=== PATIENT | male | born 1960 | race Two or more races ===

== ENCOUNTER → 2016-07-28 | Outpatient (CLI) | payer OTHER ==
--- NOTE | 2016-07-28 15:14 | XR ---
EXAMINATION TYPE: XR chest 2V DATE OF EXAM: 07/28/2016 2:21 PM COMPARISON: NONE HISTORY: Bacterial pneumonia, cough TECHNIQUE: Frontal and lateral views of the chest are obtained. FINDINGS: There is no focal air space opacity, pleural effusion, or pneumothorax seen. The cardiac silhouette size is within normal limits. There is a mild spinal curvature. The osseous structures ar e intact. IMPRESSION: No acute cardiopulmonary process.
== END | disposition home or self-care (01) ==
LOC: RADXRMAIN 14:08
PROVIDERS: ATTEND Family Medicine
DX: J18.9 Pneumonia, unspecified organism (principal)
CPT/HCPCS: 71020

== ENCOUNTER 2020-10-04 09:05 | Day surgery (SDC) | payer OTHER ==
[2020-10-01 11:49] VITALS: BMI 26.6
[~2020-10-04 09:05] MED LIST: LACTATED RINGERS 1,000 ML IV SCH
[2020-10-04 10:14] VITALS: TEMP 97.8
[2020-10-04] MEDS ORDERED: LACTATED RINGERS 1,000 ML IV ONE (10:14)
[2020-10-04] MEDS ORDERED: LIDOCAINE 1% (10MG/ML) FOR IV START INTRADERMA ONE (10:23)
[2020-10-04] MEDS ORDERED: PROPOFOL 10 MG/ML 20 ML VIAL IV ONE (11:25)
--- NOTE | 2020-10-04 11:30 | P.GSHP ---
History of Present Illness H&P Date: 10/04/20 Chief Complaint: History of colon polyps Is a 60-year-old male been safe for colonoscopy. Patient has a history of colon polyps. Last colonoscopy was 10 years ago Past Medical History Past Medical History: No Reported History History of Any Multi-Drug Resistant Organisms: None Reported Past Surgical History: Hernia Repair Additional Past Surgical History / Comment(s): nasal surgery as child, cyst in throat Past Anesthesia/Blood Transfusion Reactions: No Reported Reaction Smoking Status: Never smoker Medications and Allergies Home Medications Medication Instructions Recorded Confirmed Type No Known Home Medications 10/01/20 10/01/20 History Allergies Allergy/AdvReac Type Severity Reaction Status Date / Time No Known Allergies Allergy Verified 10/01/20 11:45 Surgical - Exam Vital Signs Temp Pulse Resp BP Pulse Ox 97.8 F 62 18 163/84 99 10/04/20 10:13 10/04/20 10:13 10/04/20 10:13 10/04/20 10:13 10/04/20 10:13 - General well developed, well nourished, no distress - Eyes PERRL - ENT normal pinna - Neck no masses - Respiratory normal expansion - Cardiovascular Rhythm: regular - Abdomen Abdomen: soft, non tender Assessment and Plan Assessment: History of colon polyps. We'll perform colonoscopy.
--- NOTE | 2020-10-04 11:41 | P.OP ---
Date of Procedure: 10/04/20 Preoperative Diagnosis: History of colon polyps Postoperative Diagnosis: Hemorrhoids Procedure(s) Performed: Colonoscopy Anesthesia: MAC Surgeon: Earle Valdez Pathology: none sent Condition: stable Disposition: PACU Description of Procedure: The patient's placed on the endoscopy table in the lateral position. Seen IV sedation. Digital rectal exam was performed which revealed external hemorrhoids. Flexible colonoscope was then placed patient anus passed throughout the entire colon. The ileocecal valve was visualized. Cecum, ascending and transverse colon appeared normal. The descending and sigmoid colon appeared normal. Scope was brought back the rectum was normal. Scope from patient.
[2020-10-04 12:08] VITALS: BP 168/92; PULSE 60; RESP 16
== END 2020-10-04 13:14 | disposition home or self-care (01) ==
LOC: ORWHC2ENDO 09:05
PROVIDERS: ATTEND Surgery
DX: Z12.11 Encounter for screening for malignant neoplasm of colon (principal); Z86.010 Personal history of colon polyps; K64.8 Other hemorrhoids
CPT/HCPCS: J2704; G0105; 45378

== ENCOUNTER → 2021-03-05 | Outpatient (CLI) | payer OTHER ==
--- NOTE | 2021-03-05 19:33 | CONS ---
CONSULTATION This is a 60-year-old male patient presenting with concerns about sleep apnea. REASON FOR CONSULTATION: Sleep apnea. The patient is a 60-year-old male who is coming in today accompanied by his . The patient's has noted that the patient is snoring loudly and he stops breathing at night. It has been getting worse over the past 6 months. The patient occasionally wakes up gasping for air. He goes to bed around 11 p.m., wakes up at 4 a.m. in the morning. He tosses and turns in his bed till around 5 or 5:30, and he gets out of bed following that. He does not feel any tiredness or sleepiness or somnolence or drowsiness during the day. No recent weight gain or weight loss. In fact, the patient has lost weight. He has changed his life style and he is undergoing walking and running and sports in general, and he has lost a considerable amount of weight, on the order of 25-30 pounds over the past several years. Newhall score is currently at 2. He is able to drive his car without falling asleep. No nocturnal angina, shortness of breath or heartburn. No sleepwalking or sleeptalking. He does not wake up with a dry mouth. On examination he has significant overbite. PAST MEDICAL HISTORY: Negative. SURGICAL HISTORY: Surgical history includes vasectomy, hernia repair and colonoscopies. DRUG ALLERGIES: MOTRIN. MEDICATIONS: None. SOCIAL HISTORY: Nonsmoker. Drinks 3 beers around 2 hours prior to going to bed while watching television. REVIEW OF SYSTEMS: Fourteen-point review of systems was done, and the positive findings are all mentioned above in the history of present illness. FAMILY HISTORY: Negative for sleep apnea. Positive for heart disease and hyperlipidemia in his parents. PHYSICAL EXAMINATION: BP is 140/88, pulse 63, respirations 12, temperature 97.5, saturation 99% on room air. Body mass index is 27.6. Newhall score is 2. Neck size 16-1/2 inches. Weight is 187. GENERAL APPEARANCE: Calm, comfortable. HEAD: Atraumatic, normocephalic. NECK: Supple. No JVD. No goiter or neck masses. Mallampati class 4. LUNGS: Diminished. Otherwise clear. HEART: Heart sounds are regular rate and rhythm. Normal S1, S2. No S3, S4. No murmurs. ABDOMEN: Soft, nontender. No organomegaly. EXTREMITIES: No edema. No cyanosis or clubbing. IMPRESSION: 1. Primary snoring versus obstructive sleep apnea. This needs to be further investigated. Symptoms are essentially related to snoring and occasional apneas. Nevertheless, no major hypersomnia or sleepiness or impairment in day-to-day functioning or quality of life. Newhall score is only 2. 2. Significant overbite. PLAN: 1. Will do a home sleep study to evaluate the patient for sleep breathing disorder. 2. Will consider oral appliance if his sleep apnea turns out to be mild. Snore guard will be helpful if the patient has primary snoring. Any form of significant or moderate to severe sleep apnea may need CPAP therapy. Final decision will be done based on results of the home sleep study. Meanwhile, the patient should be able to sleep on his side. Keep the head of the bed elevated, avoid alcohol drinking at least 3 hours prior to going to bed, and the patient will see me back in followup here in the sleep center. MMSONAML / CHIKIN: [id number] /
== END | disposition home or self-care (01) ==
LOC: SLEEP 15:09
PROVIDERS: ATTEND Internal Medicine Critical Care Medicine
DX: G47.30 Sleep apnea, unspecified (principal)
CPT/HCPCS: 99211

== ENCOUNTER 2021-05-26 17:28 | Observation (INO) | payer OTHER ==
[2021-05-26] MEDS ORDERED: SODIUM CHLORIDE 0.9% 500 ML 500 ML IV STA (17:46)
[2021-05-26] MEDS ORDERED: MECLIZINE 12.5 MG TAB PO STA (17:46)
[2021-05-26] MEDS ORDERED: ONDANSETRON 4 MG/2 ML VIAL IVP STA (17:46)
[2021-05-26 18:19] LABS: Basophils % (A) 0 %; Eosinophils # (A) 0.1 k/uL (0-0.7); Eosinophils % (A) 1 %; HCT 47.5 % (39.0-53.0); HGB 15.8 gm/dL (13.0-17.5); Lymphocytes # (A) 1.2 k/uL (1.0-4.8); Lymphocytes % (A) 18 %; MCH 31.7 pg (25.0-35.0); MCHC 33.2 g/dL (31.0-37.0); MCV 95.5 fL (80.0-100.0); Monocytes # (A) 0.3 k/uL (0-1.0); Monocytes % (A) 5 %; Neutrophils % (A) 73 %; Platelet Count 236 k/uL (150-450); RBC 4.98 m/uL (4.30-5.90); RDW 13.5 % (11.5-15.5); WBC 6.8 k/uL (3.8-10.6)
[2021-05-26 18:26] LABS: ALT 21 U/L (4-49); AST 27 U/L (17-59); African American GFR (CKD) >90 (>60 ml/min/1.73 sqM); Albumin 4.5 g/dL (3.5-5.0); Alkaline Phosphatase 65 U/L (38-126); Anion Gap 12 mmol/L; Blood Urea Nitrogen 15 mg/dL (9-20); Calcium 9.8 mg/dL (8.4-10.2); Carbon Dioxide 22 mmol/L (22-30); Chloride 104 mmol/L (98-107); Glucose 133 mg/dL (74-99); Non-African American GFR(CKD) >90 (>60 ml/min/1.73 sqM); Potassium 4.1 mmol/L (3.5-5.1); Sodium 138 mmol/L (137-145); Total Bilirubin 0.5 mg/dL (0.2-1.3); Total Protein 7.4 g/dL (6.3-8.2)
[2021-05-26 18:29] LABS: Prothrombin Time 10.5 sec (9.0-12.0)
--- NOTE | 2021-05-26 19:19 | CT ---
EXAMINATION TYPE: CT brain wo con DATE OF EXAM: 05/26/2021 COMPARISON: None HISTORY: Vertico CT DLP: 1126.8 mGycm Automated exposure control for dose reduction was used. Ventricles have normal size. There is no mass effect nor midline shift. There is no sign of intracran ial hemorrhage. Calvarium is intact. IMPRESSION: Negative unenhanced head CT scan.
--- NOTE | 2021-05-26 19:20 | XR ---
EXAMINATION TYPE: XR chest 2V DATE OF EXAM: 05/26/2021 COMPARISON: 07/28/2016 HISTORY: Cough and congestion. Dizziness. TECHNIQUE: FINDINGS: There is no heart failure nor confluent pneumonic infiltrate. Heart and mediastinum are nor mal. Diaphragm is normal. There are chest leads. IMPRESSION: No active cardiomegaly disease. Normal heart. No change.
--- NOTE | 2021-05-26 19:50 | CT ---
EXAMINATION TYPE: CT angio head neck DATE OF EXAM: 05/26/2021 COMPARISON: None HISTORY: Sudden onset of Vertigo CT DLP: 629.8 mGycm Automated exposure control for dose reduction was used. CONTRAST: Performed with IV Contrast, patient injected with 65 mL of Isovue 370. Images obtained from the aortic arch to the vertex of the brain with IV contrast. There are 3-D post processed images. FINDINGS: There is normal branching pattern of the great vessels on the aortic arch. There is arterial flow in the subclavian arteries bilaterally. There is arterial flow in the common internal and external carot id arteries bilaterally. There is wide patency of the carotid artery bifurcations. There is arterial flow in both vertebral arteries. There is arterial flow in the vertebrobasilar artery system. There i s no evidence of carotid or vertebral artery aneurysm or dissection. There is arterial flow in the anterior middle and posterior cerebral arteries. There is no mass effec t. There is no evidence of intracranial aneurysm or neovascularity. There is normal enhancement of th e venous sinuses. I see no evidence of intracranial hemodynamic arterial stenosis. IMPRESSION: Negative CT angiogram of the neck. Negative CT angiogram of the brain.
[2021-05-26] MEDS ORDERED: NALOXONE 0.4 MG/ML 1 ML VIAL IV PRN (20:02)
[2021-05-26] MEDS ORDERED: ACETAMINOPHEN TAB 325 MG TAB PO PRN (20:02)
[2021-05-26] MEDS ORDERED: ONDANSETRON 4 MG/2 ML VIAL IVP PRN (20:02)
[2021-05-26] MEDS ORDERED: MECLIZINE 25 MG TAB PO PRN (20:04)
--- NOTE | 2021-05-26 20:05 | ED ---
General Adult HPI - General Chief complaint: Dizziness Stated complaint: Chest pain Time Seen by Provider: 05/26/21 17:42 Source: patient, family, RN notes reviewed, old records reviewed Mode of arrival: wheelchair Limitations: no limitations - History of Present Illness Initial comments: Patient is a 60-year-old male with no significant past medical history presents emergency Department complaining of sudden onset of vertigo symptoms. Despite the triage note settings chest pain, patient states he never had chest pain, never had shortness of breath. He states that suddenly proximally to 3 hours prior to arrival, he was having sudden onset of diaphoresis, vertiginous symptoms of recurrence of any sensation, associated with nausea and one episode of emesis. He became anxious. Patient is brought to the emergency department for further evaluation by his . Denies any headache, blurry vision. Denies any diarrhea, fevers, chills, sick contacts. He was vaccinated for COVID-19. Denies any coughing. His no chest pain or shortness of breath at this time. His no other acute complaints at this time. He presents to the emergency department over concern for his vertiginous symptoms. Describes it as a room spinning sensation that is improved when he presses head, but is still present when sitting down occasionally. No history of vertigo. No weakness or numbness elsewhere. No other neurological deficits. - Related Data Home Medications Medication Instructions Recorded Confirmed Aluminum Chloride [Drysol] 1 applic TOPICAL Q48H 05/26/21 05/26/21 Allergies Allergy/AdvReac Type Severity Reaction Status Date / Time No Known Allergies Allergy Verified 05/26/21 19:26 Review of Systems ROS Statement: Those systems with pertinent positive or pertinent negative responses have been documented in the HPI. Review of Systems: CONST: Denies fever EYES: Denies blurry vision ENT: Denies nasal congestion C/V: Denies Chest pain RESP: Denies shortness of breath GI: Denies abdominal pain : Denies dysuria SKIN: Denies rash. MSK: Denies joint pain. NEURO: Endorses dizziness. ROS Other: All systems not noted in ROS Statement are negative. Past Medical History Past Medical History: No Reported History History of Any Multi-Drug Resistant Organisms: None Reported Past Surgical History: Hernia Repair Additional Past Surgical History / Comment(s): nasal surgery as child, cyst in throat Past Anesthesia/Blood Transfusion Reactions: No Reported Reaction Past Psychological History: No Psychological Hx Reported Smoking Status: Never smoker General Exam - General Exam Comments Initial Comments: General: Appears in mild distress secondary to dizziness. HEAD: Normal with no signs of head trauma. EYES: PERRLA, EOMI, conjunctiva normal, no discharge. Pupils are 3 mm and equal bilaterally. ENT: Hearing grossly intact, normal oropharynx. RESPIRATORY: Clear breath sounds bilaterally. No wheezes, rales, or rhonchi. C/V: Regular rate and rhythm. S1 and S2 auscultated, no edema, peripheral pulses 2+ and intact throughout ABD: Abd is soft, nontender, nondistended EXT: Normal range of motion, no obvious deformity SKIN: No rashes or lesions observed on exposed skin. NEURO: Alert and oriented 4. Cranial nerves II through XII are intact. No focal sensory strength deficits. NIH stroke scale is 0. GCS is 15. Cerebellar function is intact as evident by normal finger to nose testing. Limitations: no limitations Course Vital Signs 05/26/21 05/26/21 17:29 19:52 Temperature 97.4 F L Pulse Rate 60 64 Respiratory 18 18 Rate Blood Pressure 134/94 O2 Sat by Pulse 100 98 Oximetry Medical Decision Making - Medical Decision Making Is somewhat patient's presentation and physical exam, he does appear to have new onset vertigo. We will obtain a cardiac workup in addition to CT head and CTA brain. I do not believe that strep pigeon needs to be activated at this time as he has no other neurological deficits. Patient as well as his are in ag reement this plan. Patient will be administered a small fluid bolus, as well as by mouth meclizine. Also be given Zofran. EKG showed no signs of acute ischemia. CT brain and CTA brain revealed no acute intracranial process. Chest x-ray revealed no acute cardiopulmonary process. Laboratory studies are remarkable for negative troponin. The remainder of the labs are unremarkable. On reevaluation, the patient's vertiginous symptoms are improved but not resolved. Attempted Rola-Hallpike an Mario maneuver without much improvement. We will therefore admit the patient to the hospital for neurological evaluation as well as MRI. Patient and his are in agreement with this plan. He will be given an additional dose of meclizine. MRI was ordered by myself. Consulted neurology to Dr. Blount was placed for tomorrow. I spoke with the admitting physician, Dr. Heredia who accepted the patient. Patient was admitted to a telemetry bed and serous condition. - Lab Data Result diagrams: 05/26/21 17:58 05/26/21 17:58 Lab Results 05/26/21 05/26/21 05/26/21 Range/Units 17:58 17:58 17:58 WBC 6.8 (3.8-10.6) k/uL RBC 4.98 (4.30-5.90) m/uL Hgb 15.8 (13.0-17.5) gm/dL Hct 47.5 (39.0-53.0) % MCV 95.5 (80.0-100.0) fL MCH 31.7 (25.0-35.0) pg MCHC 33.2 (31.0-37.0) g/dL RDW 13.5 (11.5-15.5) % Plt Count 236 (150-450) k/uL MPV 7.0 Neutrophils % 73 % Lymphocytes % 18 % Monocytes % 5 % Eosinophils % 1 % Basophils % 0 % Neutrophils # 5.0 (1.3-7.7) k/uL Lymphocytes # 1.2 (1.0-4.8) k/uL Monocytes # 0.3 (0-1.0) k/uL Eosinophils # 0.1 (0-0.7) k/uL Basophils # 0.0 (0-0.2) k/uL PT 10.5 (9.0-12.0) sec INR 1.0 (<1.2) Sodium 138 (137-145) mmol/L Potassium 4.1 (3.5-5.1) mmol/L Chloride 104 (98-107) mmol/L Carbon Dioxide 22 (22-30) mmol/L Anion Gap 12 mmol/L BUN 15 (9-20) mg/dL Creatinine 0.78 (0.66-1.25) mg/dL Est GFR (CKD-EPI)AfAm >90 (>60 ml/min/1.73 sqM) Est GFR (CKD-EPI)NonAf >90 (>60 ml/min/1.73 sqM) Glucose 133 H (74-99) mg/dL Calcium 9.8 (8.4-10.2) mg/dL Total Bilirubin 0.5 (0.2-1.3) mg/dL AST 27 (17-59) U/L ALT 21 (4-49) U/L Alkaline Phosphatase 65 (38-126) U/L Troponin I (0.000-0.034) ng/mL Total Protein 7.4 (6.3-8.2) g/dL Albumin 4.5 (3.5-5.0) g/dL Urine Color Urine Appearance (Clear) Urine pH (5.0-8.0) Ur Specific [place] (1.001-1.035) Urine Protein (Negative) Urine Glucose (UA) (Negative) Urine Ketones (Negative) Urine Blood (Negative) Urine Nitrite (Negative) Urine Bilirubin (Negative) Urine Urobilinogen (<2.0) mg/dL Ur Leukocyte Esterase (Negative) Urine Opiates Screen (NotDetected) Ur Oxycodone Screen (NotDetected) Urine Methadone Screen (NotDetected) Ur Propoxyphene Screen (NotDetected) Ur Barbiturates Screen (NotDetected) U Tricyclic Antidepress (NotDetected) Ur Phencyclidine Scrn (NotDetected) Ur Amphetamines Screen (NotDetected) U Methamphetamines Scrn (NotDetected) U Benzodiazepines Scrn (NotDetected) Urine Cocaine Screen (NotDetected) U Marijuana (THC) Screen (NotDetected) 05/26/21 05/26/21 Range/Units 17:58 19:49 WBC (3.8-10.6) k/uL RBC (4.30-5.90) m/uL Hgb (13.0-17.5) gm/dL Hct (39.0-53.0) % MCV (80.0-100.0) fL MCH (25.0-35.0) pg MCHC (31.0-37.0) g/dL RDW (11.5-15.5) % Plt Count (150-450) k/uL MPV Neutrophils % % Lymphocytes % % Monocytes % % Eosinophils % % Basophils % % Neutrophils # (1.3-7.7) k/uL Lymphocytes # (1.0-4.8) k/uL Monocytes # (0-1.0) k/uL Eosinophils # (0-0.7) k/uL Basophils # (0-0.2) k/uL PT (9.0-12.0) sec INR (<1.2) Sodium (137-145) mmol/L Potassium (3.5-5.1) mmol/L Chloride (98-107) mmol/L Carbon Dioxide (22-30) mmol/L Anion Gap mmol/L BUN (9-20) mg/dL Creatinine (0.66-1.25) mg/dL Est GFR (CKD-EPI)AfAm (>60 ml/min/1.73 sqM) Est GFR (CKD-EPI)NonAf (>60 ml/min/1.73 sqM) Glucose (74-99) mg/dL Calcium (8.4-10.2) mg/dL Total Bilirubin (0.2-1.3) mg/dL AST (17-59) U/L ALT (4-49) U/L Alkaline Phosphatase (38-126) U/L Troponin I <0.012 (0.000-0.034) ng/mL Total Protein (6.3-8.2) g/dL Albumin (3.5-5.0) g/dL Urine Color Light Yellow Urine Appearance Clear (Clear) Urine pH 7.5 (5.0-8.0) Ur Specific [place] 1.034 (1.001-1.035) Urine Protein Negative (Negative) Urine Glucose (UA) Negative (Negative) Urine Ketones Negative (Negative) Urine Blood Negative (Negative) Urine Nitrite Negative (Negative) Urine Bilirubin Negative (Negative) Urine Urobilinogen <2.0 (<2.0) mg/dL Ur Leukocyte Esterase Negative (Negative) Urine Opiates Screen Not Detected (NotDetected) Ur Oxycodone Screen Not Detected (NotDetected) Urine Methadone Screen Not Detected (NotDetected) Ur Propoxyphene Screen Not Detected (NotDetected) Ur Barbiturates Screen Not Detected (NotDetected) U Tricyclic Antidepress Not Detected (NotDetected) Ur Phencyclidine Scrn Not Detected (NotDetected) Ur Amphetamines Screen Not Detected (NotDetected) U Methamphetamines Scrn Not Detected (NotDetected) U Benzodiazepines Scrn Not Detected (NotDetected) Urine Cocaine Screen Not Detected (NotDetected) U Marijuana (THC) Screen Detected H (NotDetected) - EKG Data -: EKG Interpreted by Me EKG Comments: 12-lead Electrocardiogram Interpretation Note EKG was reviewed and interpreted by myself. 12-lead ECG performed at 1748 is interpreted by me as revealing sinus bradycardia at a rate of 57 beats per minute. [place] is normal. DE interval is 206 ms, QRS duration is 104 ms, QTc is 406 seconds.. There were no ST or T wave abnormalities to suggest myocardial ischemia or injury. R wave progression across the precordium was satisfactory. By my interpretation this EKG is non-diagnostic for acute ischemia. There is slight first-degree AV block present. Disposition Clinical Impression: Vertigo, First degree AV block, Nausea & vomiting Disposition: ADMITTED IP TO THIS HOSP Condition: Serious Referrals: Ildefonso Tim DO [Primary Care Provider] - 1-2 days
[2021-05-26 20:25] LABS: Appearance,Urine Clear (Clear); Bilirubin,Urine Negative (Negative); Blood,Urine Negative (Negative); Color,Urine Light Yellow; Glucose,Urine (UA) Negative (Negative); Ketones,Urine Negative (Negative); Leukocyte Esterase,Urine Negative (Negative); Nitrite,Urine Negative (Negative); PH, Urine 7.5 (5.0-8.0); Protein,Urine Negative (Negative); Specific Gravity,Urine 1.034 (1.001-1.035); Urobilinogen,Urine <2.0 mg/dL (<2.0)
[2021-05-26 20:37] LABS: Amphetamine Screen,Urine Not Detected (NotDetected); Barbiturate Screen,Urine Not Detected (NotDetected); Benzodiazepines Screen,Urine Not Detected (NotDetected); Cocaine Screen,Urine Not Detected (NotDetected); Methadone Screen, Urine Not Detected (NotDetected); Opiate Screen,Urine Not Detected (NotDetected); Oxycodone Screen, Urine Not Detected (NotDetected); Phencyclidine Screen,Urine Not Detected (NotDetected); Tricyclic Antidepressant,Urine Not Detected (NotDetected); Urn Cannabinoid Scrn Detected (NotDetected)
[2021-05-27 08:18] VITALS: BP 134/77; PULSE 62; RESP 18; TEMP 98.2
[2021-05-27] MEDS ORDERED: ASCORBIC ACID 500 MG TAB PO SCH (10:00)
[2021-05-27] MEDS ORDERED: ZINC SULFATE 220 MG CAP PO SCH (10:00)
[2021-05-27] MEDS ORDERED: LORATADINE 10 MG TAB PO SCH (10:00)
[2021-05-27] MEDS ORDERED: dexAMETHasone 2 MG TAB PO SCH (10:00)
[2021-05-27] MEDS: MECLIZINE 25 MG TAB PO SCH ×2 (10:45→16:10)
[2021-05-27] MEDS ORDERED: ASPIRIN 81 MG PO SCH (12:00)
--- NOTE | 2021-05-27 12:00 | P.CNNES ---
History of Present Illness Consult date: 05/27/21 Requesting physician: Vasu Gallegos Reason for Consult: New onset vertigo History of Present Illness: Patient is a 60-year-old male came to the hospital yesterday at 5:28 PM for acute onset of vertigo. Patient states that yesterday he had breakfast with his mother. He was outside during the day. At around 1 PM yesterday, he came back, and wanted to lay down. When he got up, his head started spinning. The spin priscilla would not quit. Therefore his brought him to the hospital. Patient denies any numbness tingling focal weakness, dysphagia, dysarthria. Denies any previous history of dizziness or vertigo. Vital signs on arrival blood pressure 134/94, pulse rate 60, temperature 97.4. Blood test shows normal CBC, PT/PTT, Chem-20, troponin, UA and urine drug screen positive for marijuana. Jack virus PCR positive. Patient's lipid panel with cholesterol 214, LDL 138, HDL 60 and triglycerides 79. Hemoglobin A1c 5.6 on 08/24/2020. CT head was negative for any acute process. Visualized paranasal sinuses are clear. Chest x-ray normal. CTA of head and neck reported as negative. EKG shows sinus bradycardia, RSR or QR pattern in V1 suggests right ventricular conduction delay. Patient states that since he came to the hospital, he continues to be dizzy, with spinning sensation, any time he moves his head. He feels dizzy when he rolls over in the bed from [id number]. Patient denies any history of diabetes, hypertension and tobacco use. He is very active, plays hockey every Thursday and Thursday and played hockey on last 05/24/2021 and was feeling fine. Patient states that he suffered from Covid in October 2019, when he lost sense of smell and taste for some time. He received vaccination in October 2020. About 2 weeks ago he received the Anthony or shots of Pfizer vaccine as well as flu shot on the same day. He was doing well for 2 weeks until yesterday when symptoms started. Patient states that he cannot lay on the side, all cannot nod his head up and down, as it makes him d pam. Only if he is laying still, looking straight ahead, not moving, feels comfortable. He denies any fever or chills. Patient denies any pain in the ears, tinnitus, loss of hearing. He feels off balance, only when he feels dizzy otherwise feels fine. No nausea or vomiting. Patient does complain of some headache in the bifrontal region, which is not very severe. Patient says that whenever he feels dizzy, he breaks out in sweat. Review of Systems As above in detail. All other review of systems reviewed and noncontributory. Past Medical History Past Medical History: No Reported History History of Any Multi-Drug Resistant Organisms: None Reported Past Surgical History: Hernia Repair Additional Past Surgical History / Comment(s): nasal surgery as child, cyst in throat Past Anesthesia/Blood Transfusion Reactions: No Reported Reaction Past Psychological History: No Psychological Hx Reported Smoking Status: Never smoker Medications and Allergies Home Medications Medication Instructions Recorded Confirmed Type Aluminum Chloride [Drysol] 1 applic TOPICAL Q48H 05/26/21 05/26/21 History Ascorbic Acid [Vitamin C] 1,000 mg PO DAILY tab 05/27/21 Rx Aspirin 81 mg PO DAILY #0 tab 05/27/21 Rx Atorvastatin [Lipitor] 20 mg PO HS #30 tab 05/27/21 Rx Cholecalciferol [Vitamin D3 (25 50 mcg PO DAILY tablet 05/27/21 Rx Mcg = 1000 Iu)] Dexamethasone [Decadron] 6 mg PO DAILY #5 tablet 05/27/21 Rx Loratadine [Claritin] 10 mg PO DAILY #0 tab 05/27/21 Rx Meclizine [Antivert] 25 mg PO TID tab 05/27/21 Rx Zinc Sulfate [Orazinc] 220 mg PO DAILY cap 05/27/21 Rx Allergies Allergy/AdvReac Type Severity Reaction Status Date / Time No Known Allergies Allergy Verified 05/26/21 19:26 Physical Examination - Vital Signs Vital Signs: Vital Signs Temp Pulse Pulse Pulse Pulse Pulse Resp 05/27/21 07:00 98.2 F 61 62 62 18 05/27/21 03:12 98.0 F 52 L 16 05/26/21 22:21 98.5 F 63 16 05/26/21 20:51 66 18 05/26/21 19:52 64 18 05/26/21 17:29 97.4 F L 60 18 BP BP BP BP BP Pulse Ox 05/27/21 07:00 165/89 153/93 134/77 98 05/27/21 03:12 143/79 99 05/26/21 22:21 147/76 99 05/26/21 20:51 136/70 98 05/26/21 19:52 134/94 98 05/26/21 17:29 100 Intake and Output 05/26/21 05/27/21 05/27/21 22:59 06:59 14:59 Intake Total 300 300 Balance 300 300 Intake: Oral 300 Other 300 Other: # Voids 1 2 Weight 79.379 kg Patient is a younger-looking, late middle aged female, in no acute distress. Patient is alert awake oriented to time place and person. Speech and language functions are normal. Attention, concentration and fund of knowledge is adequate. On cranial examination, pupils are round and reacting to light, visual badillo are full on confrontation, extraocular muscles are intact with no nystagmus. Patient feels dizzy with any eye movement. Face is symmetric, tongue protrudes to the midline. Palatal elevation and sensation normal, hearing and shoulder shrug normal, facial sensation normal. Shoulder shrug normal. On muscle strength testing, there is no pronator drift and the strength is normal in arms and legs distally and proximally. Deep tendon reflexes are symmetric and plantars downgoing. Sensory to touch is equal with no neglect. Cerebellar function showed no ataxia for [id number] testing, or [id number] testing. No dysdiadochokinesia. Tone and bulk of muscles normal. Gait deferred. On general examination, there is no carotid bruit or murmur, S1-S2 audible. Abdomen is soft nontender. Chest is clear. Peripheral pulses are present. No edema. Results - Laboratory Findings CBC and BMP: 05/26/21 17:58 05/26/21 17:58 Abnormal Lab Findings: Abnormal Labs 05/26/21 05/26/21 05/26/21 17:58 19:49 20:38 Glucose 133 H U Marijuana (THC) Screen Detected H Coronavirus (PCR) Detected A Assessment and Plan Assessment: * New onset of acute vertigo, possibly labyrinthine dysfunction. Exact etiology uncertain, as examination is nonfocal. Possibility as mentioned below. * Acute Covid-19 infection, now second time after 10/2019. Patient has received coronavirus vaccination earlier this year, and also received booster shot of Pfizer vaccine and a flu shot about 2 weeks ago. Sometimes vertigo can occur as a complication of vaccination, but occurred 2 weeks after the vaccination, therefore is slightly less likely. Central cause less likely with normal examination. * Hyperlipidemia Plan: * Patient had a normal CTA of head and neck. * Patient will undergo MRI of the brain, to rule out CVA in the cerebellar region. If MRI comes back negative, then he will be clear for discharge from neurology standpoint. Patient has received dexamethasone 6 mg in the hospital. * Continue meclizine 25 mg 3 times a day as needed for vertigo. * Start aspirin 81 mg daily because of hypercoagulable state from coronavirus. * We will start Lipitor 20 mg daily for dyslipidemia Addendum: MRI of the brain came back normal.
--- NOTE | 2021-05-27 12:52 | P.HPIM ---
History of Present Illness H&P Date: 05/27/21 HISTORY AND PHYSICAL AND DISCHARGE SUMMARY: HISTORY OF PRESENT ILLNESS This is a 60 year old male patient of Dr. Tim with past medical history of alcohol abuse, marijuana use, history of Covid 19 infection 10/2019. Patient states he developed dizziness 1 PM yesterday along with nausea. He gives history of having Covid 19 vaccine and booster. He has been to a couple funerals lately and is active in community but does not note any Covid 19 contacts. Patient complains of the room spinning and was brought into the emergency center for evaluation. Blood pressure was 134/94, heart rate 60, afebrile. Pulse ox 98% on room air. CBC, BMP, liver function test all within normal limits. Urinalysis was negative. Urine drug screen positive for jackie dony. Troponins negative 2. Coronavirus PCR positive. EKG sinus bradycardia at 57. Patient was noted to have nystagmus on the left and was started on meclizine, placed on the observation unit and consult was requested with neurology. Patient has been seen by neurology with recommendations for continuing meclizine 25 mg 3 times daily, start aspirin 81 mg daily and Lipitor 20 mg daily, MRI of t he brain. REVIEW OF SYSTEMS Constitutional: No fever, no chills, no night sweats. No weight change. No weakness, fatigue or lethargy. No daytime sleepiness. EENT: No headache. No blurred vision or double vision, no loss of vision. No loss of Hearing, no ringing in the ears, reports dizziness. No nasal drainage or congestion. No epistaxis. No sore throat. Lungs: No shortness of breath, cough, no sputum production. No wheezing. Cardiovascular: No chest pain, no lower extremity edema. No palpitations. No paroxysmal nocturnal dyspnea. No orthopnea. No lightheadedness reports dizziness. No syncopal episodes. Abdominal: No abdominal pain. No nausea, vomiting. No diarrhea. No constipation. No bloody or tarry stools. No loss of appetite. Genitourinary: No dysuria, increased frequency, urgency. No urinary retention. Musculoskeletal: No myalgias. No muscle weakness, no gait dysfunction, no frequent falls. No back pain. No neck pain. Integumentary: No wounds, no lesions. No rash or pruritus. No unusual bruising. No change in hair or nails. Neurologic: No aphasia. No facial droop. No change in mentation. No head injury. No headache. No paralysis. No paresthesia. Psychiatric: No depression. No anxiety. No mood swings. Endocrine: No abnormal blood sugars. No weight change. No excessive sweating or thirst. No cold intolerance. SOCIAL HISTORY Patient states that he is a lifelong nonsmoker. He drinks alcohol 3-4 beers per day after work for the last 15-20 years. He uses marijuana as well. He is and lives at home with his of 41 years. Patient is very active and runs, plays hockey regularly. FAMILY HISTORY Mother is alive at age 87 with COPD and memory loss. Father at age 90 from myocardial infarction. Patient has 2 brothers and 1 sister with no major me dical problems. He has 3 children with no major medical problems. PHYSICAL EXAMINATION Gen: This is a 60-year-old male. He is resting in bed and appears to be comfortable. HEENT: Head is atraumatic, normocephalic. Pupils equal, round. Sclerae is anicteric. Positive nystagmus to the left NECK: Supple. No JVD. No lymphadenopathy. No thyromegaly. LUNGS: Clear to auscultation. No wheezes or rhonchi. No intercostal retractions. HEART: Regular rate and rhythm. No murmur. ABDOMEN: Soft. Bowel sounds are present. No masses. No tenderness. EXTREMITIES: No pedal edema. No calf tenderness. NEUROLOGICAL: Patient is awake, alert and oriented x3. Cranial nerves 2 through 12 are grossly intact. ASSESSMENT AND PLAN 1. Sudden onset of acute vertigo possibly labyrinthine dysfunction related to Covid 19/Covid 19 vaccine. Consult with neurology, meclizine 25 mg 3 times daily, patient was started on aspirin 81 mg daily and Lipitor. MRI of the brain ordered. 2. Covid 19 test positive with only symptom of vertigo. Patient started on dexamethasone 6 mg daily, meclizine 25 mg 3 times daily, Claritin 10 mg daily, vitamin supplements. 3. History of alcohol abuse. Patient denies having seizure or withdrawal symptoms in the past. Patient placed as an observation status. DISCHARGE PLAN Home. DISCHARGE PLAN Aluminum Chloride [Drysol] 1 applic TOPICAL Q48H 05/26/21 [History] Ascorbic Acid [Vitamin C] 1,000 mg PO DAILY tab 05/27/21 [Rx] Aspirin 81 mg PO DAILY #0 tab 05/27/21 [Rx] Atorvastatin [Lipitor] 20 mg PO HS #30 tab 05/27/21 [Rx] Cholecalciferol [Vitamin D3 (25 Mcg = 1000 Iu)] 50 mcg PO DAILY tablet 05/27/21 [Rx] Dexamethasone [Decadron] 6 mg PO DAILY #5 tablet 05/27/21 [Rx] Loratadine [Claritin] 10 mg PO DAILY #0 tab 05/27/21 [Rx] Meclizine [Antivert] 25 mg PO TID tab 05/27/21 [Rx] Zinc Sulfate [Orazinc] 220 mg PO DAILY cap 05/27/21 [Rx] Impression and plan of care have been directed as dictated by the signing physician. Neelima Johnson nurse practitioner acting as scribe for signing physician. Past Medical History Past Medical History: No Reported History History of Any Multi-Drug Resistant Organisms: None Reported Past Surgical History: Hernia Repair Additional Past Surgical History / Comment(s): nasal surgery as child, cyst in throat Past Anesthesia/Blood Transfusion Reactions: No Reported Reaction Past Psychological History: No Psychological Hx Reported Smoking Status: Never smoker Medications and Allergies Home Medications Medication Instructions Recorded Confirmed Type Aluminum Chloride [Drysol] 1 applic TOPICAL Q48H 05/26/21 05/26/21 History Ascorbic Acid [Vitamin C] 1,000 mg PO DAILY tab 05/27/21 Rx Aspirin 81 mg PO DAILY #0 tab 05/27/21 Rx Atorvastatin [Lipitor] 20 mg PO HS #30 tab 05/27/21 Rx Cholecalciferol [Vitamin D3 (25 50 mcg PO DAILY tablet 05/27/21 Rx Mcg = 1000 Iu)] Dexamethasone [Decadron] 6 mg PO DAILY #5 tablet 05/27/21 Rx Loratadine [Claritin] 10 mg PO DAILY #0 tab 05/27/21 Rx Meclizine [Antivert] 25 mg PO TID tab 05/27/21 Rx Zinc Sulfate [Orazinc] 220 mg PO DAILY cap 05/27/21 Rx Allergies Allergy/AdvReac Type Severity Reaction Status Date / Time No Known Allergies Allergy Verified 05/26/21 19:26 Physical Exam Vitals: Vital Signs Temp Pulse Pulse Pulse Pulse Pulse Resp 05/27/21 07:00 98.2 F 61 62 62 18 05/27/21 03:12 98.0 F 52 L 16 05/26/21 22:21 98.5 F 63 16 05/26/21 20:51 66 18 05/26/21 19:52 64 18 05/26/21 17:29 97.4 F L 60 18 BP BP BP BP BP Pulse Ox 05/27/21 07:00 165/89 153/93 134/77 98 05/27/21 03:12 143/79 99 05/26/21 22:21 147/76 99 05/26/21 20:51 136/70 98 05/26/21 19:52 134/94 98 05/26/21 17:29 100 Intake and Output 05/26/21 05/27/21 05/27/21 22:59 06:59 14:59 Intake Total 300 300 Balance 300 300 Intake: Oral 300 Other 300 Other: # Voids 1 2 Weight 79.379 kg Results CBC & Chem 7: 05/26/21 17:58 05/26/21 17:58 Labs: Abnormal Lab Results - Last 24 Hours (Table) 05/26/21 05/26/21 05/26/21 Range/Units 17:58 19:49 20:38 Glucose 133 H (74-99) mg/dL U Marijuana (THC) Screen Detected H (NotDetected) Coronavirus (PCR) Detected A (Not Detectd)
--- NOTE | 2021-05-27 16:00 | MR ---
EXAMINATION TYPE: MR brain wo/w con DATE OF EXAM: 05/27/2021 COMPARISON: CT brain 05/26/2021 HISTORY: Nausea/Vomiting, new onset vertigo, Covid positive TECHNIQUE: Multiplanar, multisequence images of the brain and brainstem is performed without and with IV contras t, utilizing 7.5 mL intravenous Gadavist . FINDINGS: Diffusion weighted images demonstrate no evidence of a recent infarct or other diffusion ab normality. There is no extra-axial fluid collection or significant white matter signal abnormality. The ventricular system and cisternal spaces are normal in size and appearance. The brain volume is age appropriate. Midline structures demonstrate normal morphology, prominent cisterna magna versus arachnoid cyst in t he midline. The craniocervical junction appears within normal limits. Post contrast images demonstr ate no abnormal enhancement. The dural venous sinuses appear patent. The visualized sinuses are clear and the globes are intact. IMPRESSION: No abnormality evident to account for patient's symptoms
[2021-05-27] MEDS ORDERED: ATORVASTATIN 20 MG TAB PO SCH (21:00)
[2021-05-28 05:31] LABS: Folate, Serum 13.7 ng/mL (4.40-31.00)
[2021-05-28] MEDS ORDERED: CHOLECALCIFEROL 25 MCG (1000 IU) TABLET PO SCH (09:00)
== END 2021-05-27 17:10 | disposition home or self-care (01) ==
LOC: EC 17:28 → 6NMEDSUR 20:02
PROVIDERS: ADMIT Internal Medicine Geriatric Medicine; ATTEND Internal Medicine Geriatric Medicine
DX: U07.1 COVID-19 (principal); R42 Dizziness and giddiness; R07.9 Chest pain, unspecified; R51.9 Headache, unspecified; R61 Generalized hyperhidrosis; I44.0 Atrioventricular block, first degree; R11.2 Nausea with vomiting, unspecified; E78.5 Hyperlipidemia, unspecified; R00.1 Bradycardia, unspecified; F10.10 Alcohol abuse, uncomplicated; Z79.82 Long term (current) use of aspirin; Z79.899 Other long term (current) drug therapy; Z79.52 Long term (current) use of systemic steroids; Z82.49 Family history of ischemic heart disease and other diseases of the circulatory system; Z82.5 Family history of asthma and other chronic lower respiratory diseases; Z82.0 Family history of epilepsy and other diseases of the nervous system
CPT/HCPCS: 96374; 99285; 36415; 93005; 80053; 82607; 82746; 84484 ×2; 85025; 85610; 81003; 80306; 87635; 71046; 70496; 70450; 70498; 70553; G0378 ×2; J2405; J8540; A9585; Q9967

== ENCOUNTER → 2021-07-02 | Outpatient (CLI) | payer OTHER ==
--- NOTE | 2021-07-02 18:24 | PN ---
PROGRESS NOTE Hiram is coming in to discuss results of the home sleep study that the patient underwent on 03/05/2021. Note that the patient had a mild case of sleep apnea. He is not obese. He has a body mass index of 27.8. He has a significant overbite. His apnea-hypopnea index was 11. He did encounter some nocturnal oxygen desaturation, as the patient spent approximately 50 minutes of his sleep time with a pulse ox of 88% and less. Based on that, we had a lengthy discussion to discuss treatment options. The patient thinks that he does not need treatment, as the patient is not having any symptoms of hypersomnia or sleepiness or tiredness or fatigue during the day. Winslow score remains low at 2. No new-onset medical problems or comorbidities. No angina. No palpitations. No congestive heart failure. No stroke. No other complications otherwise. He is a nonsmoker. He has no history of chronic lung disease. REVIEW OF SYSTEMS: Fourteen-point review of system was done. Positive findings were all mentioned in the history of present illness. PHYSICAL EXAMINATION: BP is 126/78, pulse 60, respirations 16, temperature 97.3, saturation 98% on room air. Winslow score is 2. Weight is 190, BMI 27.8. GENERAL APPEARANCE: Calm, comfortable. HEAD: Atraumatic, normocephalic. Mallampati class IV with an obvious overbite. Neck is supple. No JVD. No goiter or neck masses. LUNGS: Clear to auscultation. Heart sounds are regular rate and rhythm. Normal S1, S2. No S3, S4. No murmurs. ABDOMEN: Soft, nontender. No organomegaly. EXTREMITIES: No edema. No cyanosis or clubbing. IMPRESSION: 1. Obstructive sleep apnea, mild; AHI of 11. 2. Nocturnal oxygen desaturation, mild. Minimum pulse ox of 76%. 3. Loud snoring. 4. Overbite. 5. Asymptomatic in terms of fatigue, tiredness or sleepiness. PLAN: 1. Refer this patient to the dentist in consultation for an oral appliance. 2. Encourage weight loss. 3. Sleep on the side. 4. Re-evaluate in one year with another home sleep study and consider CPAP treatment if his condition is getting worse. MMODL / IJN: [id number] /
== END ==
LOC: SLEEP 16:06
PROVIDERS: ATTEND Internal Medicine Critical Care Medicine
DX: Z53.9 Procedure and treatment not carried out, unspecified reason (principal)

== ENCOUNTER → 2023-11-26 | Outpatient (CLI) | payer OTHER ==
[2023-11-26 09:15] LABS: HCT 44.8 % (39.0-53.0); HGB 14.1 gm/dL (13.0-17.5); MCH 29.2 pg (25.0-35.0); MCHC 31.5 g/dL (31.0-37.0); MCV 92.7 fL (80.0-100.0); Mean Platelet Volume 7.5; Platelet Count 214 k/uL (150-450); RBC 4.83 m/uL (4.30-5.90); RDW 13.8 % (11.5-15.5); WBC 4.2 k/uL (3.8-10.6)
[2023-11-26 15:45] LABS: ALT 13 U/L (10-49); AST 19 U/L (14-35); Albumin 4.5 g/dL (3.8-4.9); Albumin/Globulin Ratio 1.96 Ratio (1.60-3.17); Alkaline Phosphatase 72 U/L (41-126); Calcium 9.5 mg/dL (8.7-10.3); Chloride 103 mmol/L (96-109); Globulin 2.3 g/dL (1.6-3.3); Glucose 102 mg/dL (70-110); Iron 144 UG/DL (65-175); Potassium 4.2 mmol/L (3.5-5.5); Sodium 141 mmol/L (135-145); Total Bilirubin 0.8 mg/dL (0.3-1.2); Total Iron Binding Capacity 311 UG/DL (228-460); Total Protein 6.8 g/dL (6.2-8.2)
[2023-11-26 16:10] LABS: Appearance,Urine Clear (Clear); Bilirubin,Urine Negative (Negative); Blood,Urine Negative (Negative); Color,Urine Yellow (Yellow); Ketones,Urine Negative (Negative); Nitrite,Urine Negative (Negative); Specific Gravity,Urine 1.022 (1.001-1.030); Urobilinogen,Urine 0.2 E.U./DL
== END | disposition home or self-care (01) ==
LOC: LABWHC1 07:44
PROVIDERS: ATTEND Internal Medicine Gastroenterology
DX: K63.9 Disease of intestine, unspecified (principal)
CPT/HCPCS: 36415; 80053; 81003; 82378; 83540; 83550; 85027